=== PATIENT | female | born 1945 | race Caucasian/White ===

== ENCOUNTER 2016-09-24 04:52 | Day surgery (SDC) | payer MEDICARE, OTHER ==
[2016-09-21 09:20] LABS: HEMATOCRIT 44.7 % (36.0-48.0); HEMOGLOBIN 15.4 g/dL (12.0-16.0)
[2016-09-21 09:48] LABS: A/G RATIO 1.4 (0.7-1.9); ALBUMIN 4.1 G/DL (3.5-5.0); ALKALINE PHOSPHATASE 109 U/L (45-117); BUN (BLOOD UREA NITROGEN) 14 MG/DL (6-23); CALCIUM, SERUM 9.9 MG/DL (8.5-10.4); CHLORIDE, SERUM 110 MMOL/L (96-112); CO2 (CARBON DIOXIDE) 27 MMOL/L (24-34); CREATININE 0.71 MG/DL (0.55-1.02); GFR AFRICAN AMERICAN 100 ML/MIN (>=60); GFR NON AFRICAN AMERICAN 86 ML/MIN (>=60); GLUCOSE, SERUM 90 MG/DL (60-99); SGOT(AST) 20 U/L (5-40); SGPT(ALT) 27 U/L (5-65); SODIUM, SERUM 143 MMOL/L (135-148); TOTAL BILIRUBIN 0.6 MG/DL (0-1.2); TOTAL PROTEIN 7.1 G/DL (6.0-8.5)
--- NOTE | ~2016-09-24 | OP ---
Record Of Operation [facility] [address] [place]. [address] NAME: BRYAN UNGER : 47 STATUS : REG [facility] [place] PAT#: [id number] AGE: 71 ADM/REG DATE : 09/24/16 MR#: [id number] REPORT SERV DATE: 09/24/16 DICTATED BY: BRENTON ARMENTA DATE: 09/24/16 REPORT STATUS : Draft TRANSCRIBED BY: MODL DATE: 09/24/16 DATE OF PROCEDURE: 09/24/2016 PREOPERATIVE DIAGNOSIS: Recurrent primary hyperparathyroidism. POSTOPERATIVE DIAGNOSIS: Recurrent primary hyperparathyroidism. 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 SURGEON: Brenton Armenta M.D. RESIDENT SURGEON: Landon Jaime MD. ANESTHESIA: General. ESTIMATED BLOOD LOSS: 10 mL. BRIEF HISTORY AND DESCRIPTION OF FINDINGS: The patient had undergone remote bilateral cervical exploration, resection of one left-sided gland with identification of three normal glands. 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 Intraoperatively, the pre-incision intraoperative parathyroid hormone level (IOPTH) was 240.6 pg/mL. Large right intrathymic gland was identified and resected. A 15 minute post excision IOPTH value of 42.0 pg/mL was consistent with curative resection. DETAILS OF PROCEDURE: The patient arrived in the operating suite and was placed on the table in supine position. General anesthesia was obtained via an endotracheal tube. The neck and upper chest were prepped and draped in a sterile manner. A cervical collar incision was performed. Subplatysmal flaps elevated using blunt dissection and cautery. A plane of dissection was created between the sternocleidomastoid muscle and the strap muscles. Dissection then proceeded medial to the jugular vein and anteromedial to the carotid artery. The thymic tongue was identified. Small vessels were divided between clips maintaining dissection along the thymus. It was dissected down to the entering the mediastinum with gentle persistent traction. Thymic tissue was then delivered, and large parathyroid adenoma was readily identified. The thymic tissue was clipped distally and then divided allowing the parathyroid with attached thymus to be removed. It was bisected clearly consistent with a parathyroid adenoma, sent for permanent histology. Hemostasis was complete. The wound was closed with 4-0 Vicryl. Skin closure with subcuticular 5-0 Monocryl. Sterile dressing applied, and the patient awakened, extubated, and taken to PACU. /EVA Record Of [place] [address] [facility] [address] NAME: BRYAN UNGER : [birth year] STATUS : REG [facility] [place] PAT#: [id number] AGE: 71 ADM/REG DATE : 09/24/16 MR#: [id number] REPORT SERV DATE: 09/24/16 DICTATED BY: BRENTON ARMENTA DATE: 09/24/16 REPORT STATUS : Draft TRANSCRIBED BY: EVA DATE: 09/24/16 Brenton Armenta M.D. / [id number] CC: You Sanchez CHARLES STEPHEN
[~2016-09-24 04:52] MED LIST: ATEN25 PO; CRESTOR20 MG PO; FOSAMAX35 MG PO; MONO20 PO; ZETIA PO; ZYRTEC ALLGY10 MG PO
[2016-09-24 07:37] LABS: PTH (INTRAOPERATIVE) 240.6 PG/ML (10.0-65.0); PTH TAT 0 Hrs 21 Mins
[2016-09-24 08:22] LABS: PTH TAT 0 Hrs 00 Mins
== END 2016-09-24 15:15 | disposition home or self-care (01) ==
LOC: SDC 04:52
PROVIDERS: Specialist
PROC: 0GTR0ZZ Resection of Parathyroid Gland, Open Approach (ICD-10-PCS; principal; 2016-09-24 06:45)
DX: E21.3 Hyperparathyroidism, unspecified (principal); I10 Essential (primary) hypertension; Z91.041 Radiographic dye allergy status; Z88.5 Allergy status to narcotic agent; Z88.1 Allergy status to other antibiotic agents; Z88.8 Allergy status to other drugs, medicaments and biological substances; Z79.899 Other long term (current) drug therapy
CPT/HCPCS: 80053; 83970; 85014; 85018; 88305; 88313; 93005; A9270-GY; J0690; J2250; J2405; J2710; J3010